=== PATIENT | female | born 1990 | race Caucasian/White ===

== ENCOUNTER → 2018-07-13 | Outpatient (CLI) | payer OTHER | END | disposition home or self-care (01) | LOC: CFH 11:59 | PROVIDERS: ATTEND Nurse Practitioner Primary Care | DX: N20.0 Calculus of kidney (principal) | CPT/HCPCS: 74018 ==

== ENCOUNTER 2018-09-07 14:39 | Emergency (ER) | payer OTHER ==
[~2018-09-07] VITALS: Ht 172.7 cm; Wt 68.0 kg
[2018-09-07] MEDS ORDERED: SODIUM CHLORIDE FLUSH 10ML SYR IVF ONE ×2 (15:00→15:30)
--- NOTE | 2018-09-07 15:06 | NUR ---
SBAR report received from RN, Porfirio. Dr. Singer at bedside to evaluate pt.
[2018-09-07] MEDS ORDERED: NORG1TAB7 PO (15:12)
[2018-09-07] MEDS ORDERED: LEVO200T PO (15:12)
--- NOTE | 2018-09-07 15:26 | NUR ---
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 Pt aware of POC for CTA.
--- NOTE | 2018-09-07 16:00 | NUR ---
Pt ambulated to bathroom, no assistance required. Pt back to [facility] and replaced on all monitors. VSS.
--- NOTE | 2018-09-07 16:08 | NUR ---
Pt to imaging, with tech, via [employer].
--- NOTE | 2018-09-07 16:20 | NUR ---
Pt back to room from imaging.
[2018-09-07] MEDS ORDERED: OMNIPAQUE 350 MG/ML, 100ML BOTTLE ONE (16:53)
[2018-09-07 16:58] VITALS: BP 132/77
--- NOTE | 2018-09-07 16:58 | NUR ---
Patient/Caregiver given discharge instructions and they have confirmed that they understand the instructions. Patient ambulatory with steady gait.
== END 2018-09-07 16:59 | disposition home or self-care (01) ==
LOC: ED 16:53
DX: R06.00 Dyspnea, unspecified (principal); K21.9 Gastro-esophageal reflux disease without esophagitis; R53.1 Weakness
CPT/HCPCS: 36415; 71275; 84703; 93005; 99284; Q9967

== ENCOUNTER 2019-08-22 07:33 | Outpatient (CLI) | payer OTHER ==
[~2019-08-22 07:33] MED LIST: LEVO200T PO; NORG1TAB7 PO
== END 2019-08-22 23:59 | disposition home or self-care (01) ==
LOC: LAB 07:33
PROVIDERS: ATTEND Nurse Practitioner Primary Care
DX: Z02.9 Encounter for administrative examinations, unspecified (principal)

== ENCOUNTER 2019-09-03 17:53 | Emergency (ER) | payer OTHER ==
[~2019-09-03] VITALS: Ht 152.4 cm; Wt 74.7 kg
[2019-09-03] MEDS: ONDANSETRON 2MG/ML, 2ML IVPush ONE ×2 (19:00→20:40)
[2019-09-03 19:03] LABS: BASOPHILS # (AUTO) 0.02 x10^3/uL (0-0.1); BASOPHILS % (AUTO) 0 % (0-1); EOSINOPHILS # (AUTO) 0.11 x10^3/uL (0-0.4); EOSINOPHILS % (AUTO) 1 % (1-7); LYMPHOCYTES # (AUTO) 2.82 x10^3/uL (1-3.4); LYMPHOCYTES % (AUTO) 31 % (22-44); MD NO; MEAN CORPUSCULAR HGB CONC 32.7 g/dL (32.4-35.8); MEAN CORPUSCULAR VOLUME 76.3 fL (80-100); MEAN PLATELET VOLUME 9.1 fL (7.4-10.4); MONOCYTES # (AUTO) 0.47 x10^3/uL (0.2-0.8); MONOCYTES % (AUTO) 5 % (2-9); NEUTROPHILS # (AUTO) 5.66 x10^3/uL (1.8-6.8); NEUTROPHILS % (AUTO) 62 % (42-75); PLATELET COUNT 371 x10^3/uL (130-400); RED BLOOD COUNT 5.53 x10^6/uL (3.82-5.3); RED CELL DISTRIBUTION WIDTH 18.2 % (9.6-15.2)
--- NOTE | 2019-09-03 19:10 | NUR ---
PT TO ROOM 35 PER PEDIS. PT HERE TONIGHT HER MD THOUGHT HE HEARD A RUB AFTER HER DIAGNOSIS OF COVID, AND PUT HER STEROIDS. PT FINISHED STEROIDS ON TUESDAY, BUT STILL FEELS SOB. COOK APPRENTICE TOLD HER TO COME IN FOR A SCAN. PT IS A/O X3. PT WAS COVID POSITIVE X3 WEEKS AGO. PT DENIES FEVER, SORE THROAT, JUST SOB. PT IN GOWN, MONITORS APPLIED AND CALL LIGHT GIVEN WITH INSTRUCTIONS. IV PLACED PER ORDERED, AND UA COLLECTED FOR SCAN.
[2019-09-03 19:12] LABS: ALBUMIN 4.3 g/dL (3.4-5.0); ANION GAP 10 mmol/L (5-15); CHLORIDE 99 mmol/L (98-107); CREATININE 0.71 mg/dL (0.55-1.02)
[2019-09-03 19:16] LABS: TROPONIN I < 0.015 ng/mL (0.000-0.045)
[2019-09-03] MEDS ORDERED: MORPHINE SULFATE 4 MG/ML, 1ML ONE (19:19)
[2019-09-03] MEDS ORDERED: ONDANSETRON 2MG/ML, 2ML ONE (19:20)
[2019-09-03] MEDS: MORPHINE SULFATE 4 MG/ML, 1ML IVPush PRN ×4 (19:26→20:40)
--- NOTE | 2019-09-03 20:02 | NUR ---
REPORT RECEIVED FROM LOREN LANDAVERDE. [facility]
--- NOTE | 2019-09-03 20:06 | NUR ---
IV MORPHINE PULLED AND CHARTED, HOWEVER JUST BEFORE ADMINISTERING, PT INFORMED RN THAT SHE DROVE HERSELF AND SHE DIDN'T THINK SHE NEEDED IT. MEDICATION WASTED
--- NOTE | 2019-09-03 20:07 | NUR ---
REPORT TO ARTHUR PIMENTEL.
--- NOTE | 2019-09-03 20:42 | NUR ---
PT TO CT. MEDICATED PER MAR
[2019-09-03] MEDS ORDERED: OMNIPAQUE 350 MG/ML, 100ML BOTTLE ONE (20:58)
[2019-09-03 21:15] VITALS: BP 143/70
== END 2019-09-03 21:29 | disposition home or self-care (01) ==
LOC: ED 18:36
DX: R07.2 Precordial pain (principal); R06.02 Shortness of breath; J02.9 Acute pharyngitis, unspecified; K21.9 Gastro-esophageal reflux disease without esophagitis
CPT/HCPCS: 36415; 71275; 80048; 82040; 83880; 84484; 84703; 85025; 93005; 96374; 96375; 99285; J2270; J2405; Q9967